=== PATIENT | female | born 2005 | race Caucasian/White ===

== ENCOUNTER 2024-08-28 09:21 | Inpatient (IN) | payer MEDICAID ==
[~2024-08-28] VITALS: Ht 157.5 cm; Wt 55.7 kg
[2024-08-28 11:04] LABS: BASOPHILS % (AUTO) 0.4 % (0.0-2.0); EOSINOPHILS % (AUTO) 0.1 % (1.0-6.0); HEMATOCRIT 40.1 % (36-46); HEMOGLOBIN 13.7 g/dL (12.0-16.0); LYMPHOCYTES # (AUTO) 1.1 K/uL (1.0-4.8); LYMPHOCYTES % (AUTO) 14.2 % (22.0-44.0); MEAN CORPUSCULAR HEMOGLOBIN 31.5 pg (26.0-34.0); MEAN CORPUSCULAR HGB CONC 34.1 G/dL (31.0-37.0); MEAN CORPUSCULAR VOLUME 92 fL (80-100); MONOCYTES # (AUTO) 0.4 K/uL (0.1-1.0); MONOCYTES % (AUTO) 5.4 % (2.0-9.0); NEUTROPHILS # (AUTO) 6.3 K/uL (1.8-7.7); NEUTROPHILS % (AUTO) 79.9 % (40.0-70.0); PLATELET COUNT (AUTO) 198 K/uL (150-450); RED BLOOD CELL COUNT(AUTO) 4.34 MIL/uL (4.00-5.20); RED CELL DISTRIBUTION WIDTH 12.6 % (11.5-14.5); WHITE BLOOD COUNT (AUTO) 7.8 K/uL (4.5-11.0)
[2024-08-28 11:06] LABS: COVID AG,FIA SOURCE NASAL SWAB
[2024-08-28 11:14] LABS: ANION GAP 12 mmol/L (8-16); CARBON DIOXIDE 25 mmol/L (22-29); CHLORIDE 101 mmol/L (98-107); CREATININE 0.65 mg/dL (0.60-1.30); GLOMERULAR FILTR. RATE CALC > 60 mL/min (>60); GLUCOSE,RANDOM 105 mg/dL (70-110); POTASSIUM 3.6 mmol/L (3.5-5.1); SODIUM SERUM 138 mmol/L (136-145); UREA NITROGEN, BLOOD 6 mg/dL (7-18)
[2024-08-28 11:27] LABS: ALCOHOL, URINE DRUG SCREEN NEGATIVE (NEGATIVE); AMPHET/METH SCREEN,URINE NEGATIVE (NEGATIVE); BARBITURATE SCREEN, URINE NEGATIVE (NEGATIVE); BENZODIAZEPINES SCREEN,URINE NEGATIVE (NEGATIVE); CANNABINOID SCREEN,URINE POSITIVE (NEGATIVE); COCAINE SCREEN,URINE NEGATIVE (NEGATIVE); METHADONE SCREEN, URINE NEGATIVE (NEGATIVE); OPIATE SCREEN,URINE NEGATIVE (NEGATIVE); PHENCYCLIDINE SCREEN,URINE NEGATIVE (NEGATIVE)
[2024-08-28 11:28] LABS: SARS-COV2 (COVID) ANTIGEN,FIA Negative (Negative)
[2024-08-28 11:30] LABS: ALCOHOL, BLOOD (SERUM) < 3 mg/dL (0-10)
[2024-08-28] MEDS ORDERED: GuaiFENesin/D-METHORPHAN [SUGAR-FREE] 200-20MG/10 ML SYRUP UDCUP PO PRN (12:00)
[2024-08-28] MEDS ORDERED: HydrOXYzine PAMOATE 50 MG CAPSULE PO PRN (12:00)
[2024-08-28] MEDS ORDERED: TUBERCULIN, PURIFIED PROTEIN DERIVATIVE 5 TU/0.1 ML SYRINGE ID ONE (12:00)
[2024-08-28] MEDS ORDERED: MAGNESIUM HYDROXIDE SUSPENSION 30 ML UDCUP PO PRN (12:00)
[2024-08-28] MEDS ORDERED: ZOLPIDEM TARTRATE 10 MG TABLET PO PRN (12:00)
[2024-08-28] MEDS ORDERED: MAG HYDROX/ALUMINUM HYD/SIMETH ES 30 ML SUSPENSION UDCUP PO PRN (12:00)
[2024-08-28] MEDS ORDERED: PROMETHAZINE HCL 25 MG TABLET PO PRN (12:00)
[2024-08-28] MEDS ORDERED: LOPERAMIDE HCL 2 MG CAPSULE PO PRN (12:00)
[2024-08-28] MEDS: LORazepam 2 MG TABLET PO PRN (17:29)
[2024-08-28 23:44] VITALS: BP 102/62; PULSE 79; RESP 16; TEMP 98.6; O2SAT 97
[2024-08-29] MEDS ORDERED: INFLUENZA VIRUS VACCINE TVS (6MO+) 2024-25/PF 45 MCG/0.5 ML SYRINGE IM. ONE (01:30)
[2024-08-29] MEDS: MULTIVITAMINS WITH MINERALS, THERAPEUTIC TABLET PO SCH (08:22)
[2024-08-29] MEDS: FLUoxetine HCL 20 MG CAPSULE PO SCH (08:22)
[2024-08-29] MEDS: NALTREXONE HCL 50 MG TABLET PO SCH (08:23)
[2024-08-29] MEDS: FOLIC ACID 1 MG TABLET PO SCH (08:23)
[2024-08-29] MEDS: OMEGA-3/DHA/EPA/FISH OIL 1,000 MG CAPSULE PO SCH (08:23)
[2024-08-29] MEDS: THIAMINE 100 MG TABLET PO SCH (08:34)
[2024-08-29 09:23] LABS: CHOL/HDL RATIO 1.4 (3.9-5.7); FREE T4 (FREE THYROXINE) 1.27 ng/dL (0.76-1.46); THYROID STIMULATING HORMONE 2.06 uIU/mL (0.36-3.74)
[2024-08-29] MEDS: LURASIDONE HCL 20 MG TABLET PO PRN (12:33)
[2024-08-29] MEDS: LURASIDONE HCL 20 MG TABLET PO SCH (16:46)
[2024-08-29] MEDS: MELATONIN 5 MG TABLET PO SCH (20:13)
[2024-08-29 20:25] VITALS: BP 96/55; PULSE 92; RESP 12; TEMP 97.3; O2SAT 98
[2024-08-30 08:28] VITALS: RESP 16
[2024-08-30] MEDS: FLUoxetine HCL 20 MG CAPSULE PO SCH (09:09)
[2024-08-30 12:27] VITALS: RESP 18
[2024-08-30] MEDS ORDERED: OMEG100033 PO (14:06)
[2024-08-30] MEDS ORDERED: LURA20TA PO (14:06)
[2024-08-30] MEDS ORDERED: MELA5TAB40 PO (14:06)
[2024-08-30] MEDS ORDERED: FLUO-418 PO (14:06)
[2024-08-30] MEDS ORDERED: NALT50TA33 PO (14:06)
[2024-08-30 20:00] VITALS: BP 100/60; PULSE 95; RESP 18; TEMP 97.5; O2SAT 100
[2024-08-31] MEDS: ACETAMINOPHEN 325 MG TABLET PO PRN (00:22)
[2024-08-31 00:24] VITALS: BP 110/72; PULSE 85; RESP 16; TEMP 97.8; O2SAT 98
[2024-08-31 08:11] VITALS: BP 118/79; PULSE 83; RESP 16; TEMP 98; O2SAT 96
== END 2024-08-31 10:40 | disposition home or self-care (01) | DRG 751 ==
LOC: EMS 09:28 → B3A 20:50
PROVIDERS: ADMIT Psychiatry & Neurology Psychiatry; ATTEND Psychiatry & Neurology Psychiatry
PROC: GZHZZZZ Group Psychotherapy (ICD-10-PCS; principal; 2024-08-29)
PROC: GZ51ZZZ Individual Psychotherapy, Behavioral (ICD-10-PCS; 2024-08-29)
PROC: GZ58ZZZ Individual Psychotherapy, Cognitive-Behavioral (ICD-10-PCS; 2024-08-29)
PROC: GZ56ZZZ Individual Psychotherapy, Supportive (ICD-10-PCS; 2024-08-30)
DX: F33.2 Major depressive disorder, recurrent severe without psychotic features (principal); R45.851 Suicidal ideations; I95.9 Hypotension, unspecified; Z20.822 Contact with and (suspected) exposure to COVID-19; D64.9 Anemia, unspecified; F43.10 Post-traumatic stress disorder, unspecified; F12.10 Cannabis abuse, uncomplicated; F41.9 Anxiety disorder, unspecified
CPT/HCPCS: 80048; 80061; 80307; 83036; 84439; 84443; 84703; 85025; 86592; 90686; 99285; G0480